=== PATIENT | male | born 1955 ===

== ENCOUNTER 2017-03-11 03:54 | Outpatient (CLI) | payer BC | END 2017-03-11 23:59 | disposition home or self-care (01) | LOC: DIABETIC 03:54 | PROVIDERS: ATTEND Family Medicine | DX: E11.65 Type 2 diabetes mellitus with hyperglycemia (principal) | CPT/HCPCS: G0109 ==

== ENCOUNTER 2017-05-06 04:17 | Outpatient (CLI) | payer BC | END 2017-05-06 23:59 | disposition home or self-care (01) | LOC: DIABETIC 04:17 | PROVIDERS: ATTEND Family Medicine | DX: E11.65 Type 2 diabetes mellitus with hyperglycemia (principal) | CPT/HCPCS: G0108 ==